=== PATIENT | female | born 1975 | race Caucasian/White ===

== ENCOUNTER 2017-07-01 11:22 | Emergency (ER) | payer SELFPAY ==
[~2017-07-01] VITALS: Ht 161.3 cm; Wt 110.3 kg
[~2017-07-01 11:22] MED LIST: ATHENOL325 MG PO; DOCUSATE SODIU100 MG PO; ENDOCET 5-3251 EACH PO; FLEXERIL5 MG PO; IBUPROFEN800 MG PO; NOHOMEMEDS; NORCO 5/3251 TABLET PO; PREDNISONE50 MG PO; PRENATAL TABLE1 EAC3 PO; TESSALON PERLE100 MG PO
[2017-07-01] MEDS ORDERED: TORADOL10 MG PO (13:13)
[2017-07-01] MEDS ORDERED: REGLAN5 MG PO (13:13)
[2017-07-01 13:44] VITALS: BP 124/78
== END 2017-07-01 13:45 | disposition home or self-care (01) ==
LOC: EME 11:22
DX: G43.909 Migraine, unspecified, not intractable, without status migrainosus (principal); F17.200 Nicotine dependence, unspecified, uncomplicated
CPT/HCPCS: 99281; 99283; J1885

== ENCOUNTER 2017-12-14 12:42 | Emergency (ER) | payer BC ==
[~2017-12-14] VITALS: Ht 160 cm; Wt 102.9 kg
[~2017-12-14 12:42] MED LIST changes: +REGLAN5 MG PO; +TORADOL10 MG PO
[2017-12-14 16:55] VITALS: BP 128/70
[2017-12-14] MEDS ORDERED: MOTRIN600 MG PO (16:58)
[2017-12-14] MEDS ORDERED: HURRICAINE ONE1 EACH TP (16:58)
== END 2017-12-14 17:05 | disposition home or self-care (01) ==
LOC: EME 12:42
DX: J02.8 Acute pharyngitis due to other specified organisms (principal); B97.89 Other viral agents as the cause of diseases classified elsewhere; F17.200 Nicotine dependence, unspecified, uncomplicated
CPT/HCPCS: 87651 90; 99281; 99283

== ENCOUNTER 2018-01-13 13:54 | Emergency (ER) | payer BC ==
[~2018-01-13] VITALS: Ht 162.6 cm; Wt 103.5 kg
[~2018-01-13 13:54] MED LIST changes: +HURRICAINE ONE1 EACH TP; +MOTRIN600 MG PO
[2018-01-13] MEDS ORDERED: INDOCIN50 MG PO (19:31)
[2018-01-13 19:41] VITALS: BP 144/95
== END 2018-01-13 19:44 | disposition home or self-care (01) ==
LOC: EME 13:54
DX: M77.32 Calcaneal spur, left foot (principal)
CPT/HCPCS: 73630; 99281; 99282

== ENCOUNTER 2018-03-16 13:04 | Emergency (ER) | payer BC ==
[~2018-03-16] VITALS: Ht 160 cm; Wt 109.9 kg
[~2018-03-16 13:04] MED LIST changes: +INDOCIN50 MG PO
[2018-03-16 15:50] VITALS: BP 146/94
== END 2018-03-16 15:52 | disposition home or self-care (01) ==
LOC: EME 13:04
DX: S93.602A Unspecified sprain of left foot, initial encounter (principal); W18.40XA Slipping, tripping and stumbling without falling, unspecified, initial encounter; F17.200 Nicotine dependence, unspecified, uncomplicated
CPT/HCPCS: 73630; 99281; 99283